=== PATIENT | female | born 2000 | race Caucasian/White ===

== ENCOUNTER 2022-04-17 20:35 | Emergency (ER) | payer OTHER ==
[2022-04-17 20:56] VITALS: BP 130/77; PULSE 91; RESP 19; TEMP 98; BMI 23.8
[2022-04-17] MEDS ORDERED: ACETAMINOPHEN 500 MG TABLET (FP) PO ONE (21:22)
[2022-04-17] MEDS ORDERED: ACETAMINOPHEN 500 MG TABLET (FP) ONE (21:23)
[2022-04-17] MEDS ORDERED: IBUPROFEN 600 MG TABLET (FP) PO ONE ×2 (22:44→22:45)
== END 2022-04-17 22:53 | disposition home or self-care (01) ==
LOC: JERFT 20:35 → JER 20:35 → JERFT 22:53
DX: H57.12 Ocular pain, left eye (principal); V49.9XXA Car occupant (driver) (passenger) injured in unspecified traffic accident, initial encounter
CPT/HCPCS: 70450-TC; 70486-TC; 99284-25